=== PATIENT | male | born 1940 | race Caucasian/White ===

== ENCOUNTER 2017-09-18 12:49 | Emergency (ER) | payer MEDICARE, BC ==
--- NOTE | 2017-09-18 13:44 | ED Physician Documentation ---
PD HPI HEAD INJURY - Stated complaint Stated Complaint: GLF/HEAD LAC - Chief complaint Chief Complaint: Neuro - History obtained from History obtained from: Patient, Family - History of Present Illness Mechanism of head injury: Fell Where head injury occurred: Home Timing - onset: Last night (he got up to go to the bathroom during the night and felt lightheaded, lost balance and struck his head. He does not think he passed out completely. Had a fainting episode last November or so without any positive findings. He had been feeling okay earlier in the day. Feels okay this morning when awakening. Scalp lac with concern for needing sutures. And he is on blood thinner for atrial fib, so concern of hitting head.) Location of injury: Back Quality of pain: Aching Associated symptoms: LOC (possibly brief). No: AMS, Nausea / vomiting, Neck pain, Paresthesias Symptoms worsen with: Palpation Contributing factors: Anticoagulated. No: Intoxicated Similar symptoms before: Has not had sx before Recently seen: Not recently seen Review of Systems Constitutional: denies: Fever, Chills Nose: denies: Rhinorrhea / runny nose, Congestion Throat: denies: Sore throat Cardiac: denies: Chest pain / pressure, Palpitations Respiratory: denies: Dyspnea, Cough GI: denies: Nausea, Vomiting, Diarrhea : denies: Dysuria, Frequency Musculoskeletal: denies: Neck pain, Back pain Neurologic: reports: Syncope, Head injury. denies: Focal weakness, Numbness, Confused, Altered mental status, Headache, LOC PD PAST MEDICAL HISTORY - Past Medical History Cardiovascular: Atrial fibrillation Neuro: None Endocrine/Autoimmune: None - Allergies Allergies/Adverse Reactions: Allergies Allergy/AdvReac Type Severity Reaction Status Date / Time Interferons Allergy Intermediate Anaphylaxis Verified 09/18/17 13:58 PD ED PE NORMAL - Vitals Vital signs reviewed: Yes - General General: Alert and oriented X 3, No acute distress, Well developed/nourished - HEENT HEENT: PERRL, EOMI, Pharynx benign, Other (occiput area with 3 cm vertical lac through skin layer. No FB nor active bleeding right now. Edges are close together. ) - Neck Neck: Supple, no meningeal sign, No bony TTP, No adenopathy - Cardiac Cardiac: No murmur. No: RRR (irregular but good rate) - Respiratory Respiratory: Clear bilaterally - Abdomen Abdomen: Soft, Non tender - Back Back: No spinal TTP, Other (right posterior hip/gluteal area with some tenderness but good ROM of the hip. ) - Derm Derm: Normal color, Warm and dry - Extremities Extremities: No deformity, No tenderness to palpate, Normal ROM s pain - Neuro Neuro: Alert and oriented X 3, No motor deficit, Normal speech Eye Opening: Spontaneous Motor: Obeys Commands Verbal: Oriented GCS Score: 15 - Psych Psych: Normal mood Results - Vitals Vitals: Vital Signs - 24 hr 09/18/17 09/18/17 09/18/17 13:11 14:14 16:05 Temperature 36.6 C Heart Rate 86 76 81 Respiratory 18 15 19 Rate Blood Pressure 95/56 L 116/76 115/85 H O2 Saturation 99 100 98 Oxygen O2 Source Room air - EKG (time done) 13:23 Rate: Rate (enter#) (57) Rhythm: Atrial fibrillation [place]: Normal QRS: Normal Ischemia: Non specific changes. No: ST elevation c/w ischemia, ST depression - Labs Labs: Laboratory Tests 09/18/17 09/18/17 14:00 14:00 WBC 6.5 RBC 4.11 L Hgb 13.8 L Hct 40.0 L MCV 97.2 H MCH 33.6 H MCHC 34.5 RDW 12.9 Plt Count 170 MPV 7.7 Neut # 5.2 Lymph # 0.6 L [place] # 0.6 Eos # 0.1 Baso # 0.0 Absolute Nucleated RBC 0.00 Nucleated RBC % 0.0 Sodium 136 Potassium 4.8 Chloride 104 Carbon Dioxide 24 Anion Gap 8.0 BUN 22 H Creatinine 1.0 Estimated GFR (MDRD) 72 L Glucose 134 H Calcium 9.1 Magnesium 2.1 Total Bilirubin 1.1 H AST 28 ALT 15 Alkaline Phosphatase 38 L Total Protein 6.8 Albumin 3.8 Globulin 3.0 Albumin/Globulin Ratio 1.3 Lipase 25 - Rads (name of study) head CT Radiology: Prelim report reviewed (no ICH) right hip Radiology: Prelim report reviewed, EMP read contemporaneously (no fractures) Procedures - Laceration (location) occiput left Length in cm: 3 Wound type: Linear, Into subcut fat, Clean Anesthesia: Lidocaine 1% with epi Wound Preparation: Irrigated copiously NS Skin layer closure: Nancy Other: Patient tolerated well, No complications, Neurovascular intact, Tetanus UTD Complexity: Simple PD MEDICAL DECISION MAKING - ED course Complexity details: reviewed results, re-evaluated patient (still normal neuro and feeling okay. Ambulates okay. ), considered differential, d/w patient Departure - Departure Disposition: 01 Home, Self Care Clinical Impression: Anticoagulant long-term use Syncope Qualifiers: Syncope type: unspecified Qualified Code(s): R55 - Syncope and collapse Scalp laceration Qualifiers: Encounter type: initial encounter Qualified Code(s): S01.01XA - Laceration without foreign body of scalp, initial encounter Condition: Stable Record reviewed to determine appropriate education?: Yes Instructions: ED Laceration Scalp Stitch Or Stap Follow-Up: [facility] [Provider Group] [facility] [Provider Group] Comments: It is okay to wash and shower. Clean off the wound twice a day with soap and water, or peroxide and water. Apply some antibiotic ointment to it to keep it moist. Also to watch for signs of infection such as purulence, redness or increasing pain. Return to your primary care or the ER at the specified time for suture removal. Staple removal 9 or 10 days. Tylenol if needed for headaches. There is no signs of bleeding on the CT scan. It sounds like the fainting episode was related to just a drop in blood pressure with getting up during the night. Establish local primary care. Regular good hydration. Discharge Date/Time: 09/18/17 16:05
[2017-09-18] MEDS ORDERED: ACETAMINOPHEN 325 MG TABLET PO STA (13:52)
[2017-09-18] MEDS ORDERED: LIDOCAINE MPF 1%-EPI 1:200000 30 ML VIAL SUBQ STA (13:53)
[2017-09-18 14:08] LABS: BASOPHILS % (AUTO) 0.2 %; EOSINOPHILS # (AUTO) 0.1 10^3/uL (0.0-0.7); HGB - HEMOGLOBIN 13.8 g/dL (14.0-18.0); LYMPHOCYTES # (AUTO) 0.6 10^3/uL (1.5-3.5); LYMPHOCYTES % (AUTO) 9.4 %; MEAN CORPUSCULAR HEMOGLOBIN 33.6 pg (27.0-31.0); MEAN CORPUSCULAR HGB CONC 34.5 g/dL (32.0-36.0); MEAN CORPUSCULAR VOLUME 97.2 fL (80.0-94.0); MEAN PLATELET VOLUME 7.7 fL (7.4-11.4); MONOCYTES # (AUTO) 0.6 10^3/uL (0.0-1.0); NEUTROPHILS # (AUTO) 5.2 10^3/uL (1.5-6.6); NEUTROPHILS % (AUTO) 80.4 %; PLT - PLATELET COUNT 170 10^3/uL (130-450); RED BLOOD COUNT 4.11 10^6/uL (4.70-6.10); RED CELL DISTRIBUTION WIDTH 12.9 % (12.0-15.0); WHITE BLOOD COUNT 6.5 x10^3/uL (4.8-10.8)
[2017-09-18 14:21] LABS: ALBUMIN 3.8 g/dL (3.2-5.5); ALBUMIN/GLOBULIN RATIO 1.3 (1.0-2.2); BILIRUBIN,TOTAL 1.1 mg/dL (0.2-1.0); CALCIUM 9.1 mg/dL (8.5-10.3); MAGNESIUM 2.1 mg/dL (1.7-2.8); TOTAL PROTEIN 6.8 g/dL (6.7-8.2)
--- NOTE | 2017-09-18 14:38 | CT Report ---
EXAM: CT HEAD EXAM DATE: 09/18/2017 02:13 PM. CLINICAL HISTORY: Fall and head injury; on anticoagulant. COMPARISON: None. TECHNIQUE: Multiaxial CT images were obtained from the foramen magnum to the vertex. Reformats: Coron al. IV contrast: None. In accordance with CT protocol optimization, one or more of the following dose reduction techniques w ere utilized for this exam: automated exposure control, adjustment of mA and/or KV based on patient s ize, or use of iterative reconstructive technique. FINDINGS: Parenchyma: No intracranial bleed or mass effect. 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 Extraaxial Spaces: No subdural or epidural collections identified. Ventricles: Normal in size and position. Sinuses and Orbits: The paranasal sinuses are clear with note made of part of a stud from a right max illary tooth extending to the floor of the right maxillary sinus. Mastoid air cells clear. Bones: No evidence of fracture or calvarial defect. Other: Atherosclerosis. IMPRESSION: 1. No intracranial bleed or mass effect. 2. 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 [facility] Referring Provider Line: [phone] SITE ID: [id number]
--- NOTE | 2017-09-18 15:33 | XRAY Preliminary Report ---
Exam: XR PELVIS 1 VIEW IMPRESSION: 1. Post right total hip arthroplasty. 2. No acute bony abnormality. [facility] SITE ID: [id number]
--- NOTE | 2017-09-18 15:33 | XRAY Report ---
EXAM: PELVIS RADIOGRAPHY EXAM DATE: 09/18/2017 03:18 PM. CLINICAL HISTORY: Fall with right posterior hip pain. COMPARISON: None. TECHNIQUE: 1 view. FINDINGS: Bones: Post right total hip arthroplasty. The visualized portions of the prostheses are intact. No ac yajaira fracture is seen. Joints: Normal alignment at the hips, sacroiliac joints, and pubic symphysis. Soft Tissues: Normal. No soft tissue swelling. IMPRESSION: 1. Post right total hip arthroplasty. 2. No acute bony abnormality. [facility] Referring Provider Line: [phone] SITE ID: [id number]
[2017-09-18 16:06] VITALS: BP 115/85
== END 2017-09-18 16:05 | disposition home or self-care (01) ==
LOC: ED 12:49
DX: R55 Syncope and collapse (principal); S01.01XA Laceration without foreign body of scalp, initial encounter; W18.30XA Fall on same level, unspecified, initial encounter; W22.09XA Striking against other stationary object, initial encounter; Y92.002 Bathroom of unspecified non-institutional (private) residence as the place of occurrence of the external cause; I48.91 Unspecified atrial fibrillation; Z79.01 Long term (current) use of anticoagulants
CPT/HCPCS: 12002; 36415; 70450; 72170; 80053; 83690; 83735; 85025; 93005; 99283; 99284